=== PATIENT | male | born 1935 | race Caucasian/White ===

== ENCOUNTER 2016-06-08 16:31 | Inpatient (IN) | payer MEDICARE, MEDICAID ==
[2016-06-08] MEDS ORDERED: DEXTROSE 50%-WATER 25 GM/50 ML DISP.SYRIN IV PRN ×2 (17:28)
[2016-06-08] MEDS ORDERED: DEXTROSE 40% GEL 15 GM TUBE PO PRN ×2 (17:28)
[2016-06-08] MEDS ORDERED: GLUCAGON,HUMAN RECOMB 1 MG INJ IM PRN (17:28)
[2016-06-08] MEDS ORDERED: VANCOMYCIN HCL 1,000 MG in DEXTROSE 5%-WATER 250 ML IV ONE (17:33)
[2016-06-08] MEDS ORDERED: ACETAMINOPHEN 325 MG TABLET PO PRN (17:35)
[2016-06-08 20:23] LABS: ABSOLUTE EOSINOPHILS # (AUTO) 0.4 10^3/uL (0.0-0.6); ABSOLUTE MONOCYTES (AUTO) 0.6 10^3/uL (0.1-1.4); ABSOLUTE NEUT (AUTO) 5.3 10^3/uL (1.7-8.2); BASOPHILS % (AUTO) 0.5 % (0-2); EOSINOPHILS % (AUTO) 5.3 % (0-6); HEMOGLOBIN 14.5 g/dL (13.5-17.0); HGB HCT DIFFERENCE 0.5; LYMPHOCYTES % (AUTO) 23.8 % (13-45); MEAN CORPUSCULAR HEMOGLOBIN 31.5 pg (27.0-33.4); MEAN CORPUSCULAR HGB CONC 33.8 g/dL (32.0-36.0); MEAN CORPUSCULAR VOLUME 93 fl (80-97); MONOCYTES % (AUTO) 7.5 % (3-13); RED BLOOD COUNT 4.62 10^6/uL (4.35-5.55); RED CELL DISTRIBUTION WIDTH 13.6 % (11.5-14.0); SEGMENTED NEUTROPHILS % (AUTO) 62.9 % (42-78); WHITE BLOOD COUNT 8.5 10^3/uL (4.0-10.5)
[2016-06-08 20:28] LABS: PROTHROMBIN TIME 13.3 SEC (11.4-15.4)
[2016-06-08 20:29] LABS: PARTIAL THROMBOPLASTIN TIME 30.5 SEC (23.5-35.8)
[2016-06-08] MEDS ORDERED: ENOXAPARIN SODIUM INJ 40 MG/0.4 ML DISP.SYRIN SUBCUT ONE (20:30)
[2016-06-08 20:38] LABS: ALANINE AMINOTRANSFERASE 35 U/L (21-72); ALBUMIN 3.7 g/dL (3.5-5.0); ALKALINE PHOSPHATASE 152 U/L (38-126); ANION GAP 9 (5-19); ASPARTATE AMINO TRANSFERASE 41 U/L (17-59); BILIRUBIN,TOTAL 0.7 mg/dL (0.2-1.3); BLOOD UREA NITROGEN 21 mg/dL (7-20); CALCIUM 9.4 mg/dL (8.4-10.2); CARBON DIOXIDE 30 mmol/L (22-30); CHLORIDE 103 mmol/L (98-107); CREATININE RESULT 1.15 mg/dL (0.52-1.25); GLUCOSE 136 mg/dL (75-110); POTASSIUM 4.8 mmol/L (3.6-5.0); SODIUM 141.6 mmol/L (137-145); TOTAL PROTEIN 6.9 g/dL (6.3-8.2)
--- NOTE | 2016-06-08 23:47 | PDOC H&P ---
History of Present Illness Admission Date/PCP: 06/08/16 17:00 JUWAN YOBANIScar Patient complains of: Worsening leg swelling with leg ulcers History of Present Illness: IVIS ROSAS is a 80 year old male who presented t the office for scheduled follow up for management of his diabetes mellitus, Hypothyroidism and hypertension. Patient and spouse present at the visit reported worsening bilateral leg swelling and infected ulcers and blistering lesions of his legs. There is reported episodes of productive cough and running nose. He denied any fever and chills. Patient and spouse reported worsening malodor and drainage from leg ulcers, particularly on left leg over the last couple of days. His home accucheck has been unusually higher in recent time with readings in the over 200mg/dL range. His blood pressure average was 135/70's mmHg.Patient reported compliance with his home medication. He is currently wrapping legs and ulcers per dressing twice weekly between home health agency nurse visit and spouse dressing. Past Medical History Cardiac Medical History: Reports: Hyperlipidema, Hypertension, Peripheral Vascular Disease - lower extremities venous stasis changes Endocrine Medical History: Reports: Diabetes Mellitus Type 2, Hypothyroidism, Obesity Musculoskeltal Medical History: Reports: Arthritis, Other - lymphedema Social History Information Source: Patient Occupation: Retired Lives with: Spouse/Significant other Smoking Status: Never Smoker Frequency of Alcohol Use: None Hx Recreational Drug Use: No Drugs: None - Advance Directive Resuscitation Status: Full Code Family History Family History: DM - mother, Hypertension - father Parental Family History Reviewed: Yes Children Family History Reviewed: Yes Sibling(s) Family History Reviewed.: Yes Medication/Allergy Allergies/Adverse Reactions: No Known Drug Allergies Allergy (Unknown, Unverified 06/08/16 23:42) Review of Systems Constitutional: ABSENT: chills, fever(s), headache(s), weight gain, weight loss Eyes: PRESENT: visual disturbances Ears: PRESENT: hearing changes Nose, Mouth, and Throat: ABSENT: as per HPI, headache(s), mouth pain, sore throat, vertigo, other Cardiovascular: PRESENT: edema Respiratory: ABSENT: cough, hemoptysis Gastrointestinal: ABSENT: abdominal pain, constipation, diarrhea, hematemesis, hematochezia, nausea, vomiting Genitourinary: ABSENT: dysuria, hematuria Musculoskeletal: PRESENT: deformity - arthritis involvement of many joints, joint swelling - an[place] knee joints bilaterally Integumentary: PRESENT: erythema - bilateral legs below ankle regions, lesions, rash - widespread scaly, blistering lesion on legs, wounds - malodor, drainage from left leg 6cm x 5cm wound and 4cm x 3cm on right leg., other - extensive whitish element covering both feet anf loerw 1/4 of fet anf legs. Neurological: PRESENT: abnormal gait - ambulate with walker assistance, weakness - generalized with 2 person assist Psychiatric: ABSENT: anxiety, depression, homidical ideation, suicidal ideation Hematologic/Lymphatic: ABSENT: easy bleeding, easy bruising, lymphadenopathy Allergic/Immunologic: ABSENT: as per HPI, seasonal rhinorrhea, other Physical Exam Vital Signs: Temp Pulse Resp BP Pulse Ox 98.1 F 71 20 142/58 H 100 06/08/16 22:28 06/08/16 22:30 06/08/16 22:28 06/08/16 22:30 06/08/16 22:28 Intake & Output 06/07/16 06/08/16 06/09/16 06:59 06:59 06:59 Weight 171.6 kg General appearance: PRESENT: no acute distress, cooperative, morbidly obese Head exam: PRESENT: atraumatic, normocephalic Eye exam: PRESENT: conjunctiva pink, EOMI, PERRLA Ear exam: PRESENT: normal external ear exam Mouth exam: PRESENT: moist, tongue midline Throat exam: ABSENT: post pharyngeal erythema, tonsillar erythema, tonsillar exudate, tonsillogmegaly, other Neck exam: PRESENT: full ROM. ABSENT: carotid bruit, JVD, lymphadenopathy, thyromegaly Respiratory exam: ABSENT: accessory muscle use, chest wall tenderness, clear to auscultation remedios, crackles, decreased breath sounds, prolonged expiratory phas, rales, retraction, rhonchi, stridor, symmetrical, tachypnea, unlabored, wheezes , other Cardiovascular exam: PRESENT: RRR. ABSENT: diastolic murmur, rubs, systolic murmur GI/Abdominal exam: PRESENT: normal bowel sounds, soft. ABSENT: distended, guarding, mass, organolmegaly, rebound, tenderness Extremities exam: PRESENT: full ROM, joint swelling, pedal edema, tenderness Musculoskeletal exam: PRESENT: ambulatory - with walker and2 person assist, deformity - due to joint involvement with arthritis, tenderness Neurological exam: PRESENT: alert, awake, oriented to person, oriented to place , oriented to time, oriented to situation, abnormal gait - with walker and 2person assistance, CN II-XII grossly intact. ABSENT: motor sensory deficit Psychiatric exam: PRESENT: appropriate affect, normal mood. ABSENT: homicidal ideation, suicidal ideation Skin exam: PRESENT: erythema, rash, warm, other - as noted uner ROS above Results Laboratory Results: 06/08/16 20:00 06/08/16 20:00 06/08/16 06/08/16 20:00 20:00 WBC 8.5 RBC 4.62 Hgb 14.5 Hct 43.0 MCV 93 MCH 31.5 MCHC 33.8 RDW 13.6 Plt Count 165 Seg Neutrophils % 62.9 Lymphocytes % 23.8 Monocytes % 7.5 Eosinophils % 5.3 Basophils % 0.5 Absolute Neutrophils 5.3 Absolute Lymphocytes 2.0 Absolute Monocytes 0.6 Absolute Eosinophils 0.4 Absolute Basophils 0.0 Sodium 141.6 Potassium 4.8 Chloride 103 Carbon Dioxide 30 Anion Gap 9 BUN 21 H Creatinine 1.15 Est GFR ( Amer) > 60 Est GFR (Non-Af Amer) > 60 Glucose 136 H Calcium 9.4 Total Bilirubin 0.7 AST 41 ALT 35 Alkaline Phosphatase 152 H Total Protein 6.9 Albumin 3.7 Assessment & Plan - Diagnosis (1) Infected stasis ulcer of left lower extremity Is this a current diagnosis for this admission?: YesPlan: See admitting physician orders. (2) Infected stasis ulcer of right lower extremity Is this a current diagnosis for this admission?: YesPlan: See admitting physician orders. (3) Diabetes mellitus type 2 in obese Is this a current diagnosis for this admission?: YesPlan: See admitting physician orders. (4) Hypothyroidism (acquired) Is this a current diagnosis for this admission?: YesPlan: See admitting physician orders. (5) Morbid (severe) obesity due to excess calories Is this a current diagnosis for this admission?: YesPlan: See admitting physician orders. (6) Essential hypertension Is this a current diagnosis for this admission?: YesPlan: See admitting physician orders. (7) Cellulitis and abscess of lower extremity Is this a current diagnosis for this admission?: YesPlan: See admitting physician orders. (8) HLD (hyperlipidemia) Qualifiers: Hyperlipidemia type: pure hypercholesterolemia Qualified Code(s): E78.00 - Pure hypercholesterolemia, unspecified; E78.0 - Pure hypercholesterolemia Is this a current diagnosis for this admission?: YesPlan: See admitting physician orders. - Time Time Spent: Greater than 70 Minutes Critical Time spent with patient: 15-24 minutes Medications reviewed and adjusted accordingly: Yes Anticipated discharge: SNF Within: Other - Inpatient Certification Based on my medical assessment, after consideration of the patient's comorbidities, presenting symptoms, or acuity I expect that the services needed warrant INPATIENT care.: Yes I certify that my determination is in accordance with my understanding of Medicare's requirements for reasonable and necessary INPATIENT services [42 CFR 412.3e].: Yes Medical Necessity: Need Close Monitoring Due to Risk of Patient Decompensation, Need For IV Fluids, Need For Continuous Telemetry Monitoring, Need for IV Antibiotics, Need for Surgery, Risk of Complication if Not Cared For in Hospital - Plan Summary Plan Summary: See admitting physician orders.
[2016-06-09] MEDS: ENOXAPARIN SODIUM INJ 40 MG/0.4 ML DISP.SYRIN SUBCUT SCH (06:00)
[2016-06-09] MEDS ORDERED: VANCOMYCIN HCL 0 MG in DEXTROSE 5%-WATER 250 ML IV NR (06:00)
[2016-06-09] MEDS: LANSOPRAZOLE 30 MG TAB.RAP.DR PO SCH (06:00)
[2016-06-09] MEDS: MUPIROCIN CALCIUM 2% CREAM 15 GM TP SCH ×3 (06:00→18:46)
[2016-06-09] MEDS: PIPERACILLIN SODIUM/TAZOBACTAM 3.375 GM in NORMAL SALINE 100 ML IV SCH ×3 (06:00→18:36)
[2016-06-09] MEDS: NORMAL SALINE 1000 ML 1,000 ML IV PRN ×4 (06:00→22:39)
[2016-06-09 06:37] LABS: ANION GAP 7 (5-19); BLOOD UREA NITROGEN 22 mg/dL (7-20); CALCIUM 8.9 mg/dL (8.4-10.2); CARBON DIOXIDE 28 mmol/L (22-30); CHLORIDE 106 mmol/L (98-107); CHOLESTEROL 151.07 mg/dL (0-200); CREATININE RESULT 0.86 mg/dL (0.52-1.25); Direct HDL 33 mg/dL (>40); GLUCOSE 95 mg/dL (75-110); POTASSIUM 4.6 mmol/L (3.6-5.0); SODIUM 140.8 mmol/L (137-145); TRIGLYCERIDES 163 mg/dL (<150)
[2016-06-09 06:48] LABS: DIRECT LDL 70 mg/dL (<100)
[2016-06-09 06:52] LABS: VLDL CHOLESTEROL 32.6 mg/dL (10-31)
[2016-06-09 08:04] LABS: ABSOLUTE EOSINOPHILS # (AUTO) 0.6 10^3/uL (0.0-0.6); ABSOLUTE LYMPHOCYTES (AUTO) 1.8 10^3/uL (0.5-4.7); ABSOLUTE MONOCYTES (AUTO) 0.7 10^3/uL (0.1-1.4); ABSOLUTE NEUT (AUTO) 4.7 10^3/uL (1.7-8.2); BASOPHILS % (AUTO) 0.4 % (0-2); EOSINOPHILS % (AUTO) 7.4 % (0-6); HEMATOCRIT 39.8 % (37.9-51.0); HEMOGLOBIN 13.3 g/dL (13.5-17.0); HGB HCT DIFFERENCE 0.1; MEAN CORPUSCULAR HGB CONC 33.3 g/dL (32.0-36.0); MEAN CORPUSCULAR VOLUME 93 fl (80-97); MONOCYTES % (AUTO) 8.8 % (3-13); RED BLOOD COUNT 4.28 10^6/uL (4.35-5.55); RED CELL DISTRIBUTION WIDTH 13.7 % (11.5-14.0); SEGMENTED NEUTROPHILS % (AUTO) 60.4 % (42-78); WHITE BLOOD COUNT 7.7 10^3/uL (4.0-10.5)
[2016-06-09] MEDS ORDERED: VANCOMYCIN HCL 2,000 MG in DEXTROSE 5%-WATER 500 ML IV ONE (08:30)
--- NOTE | 2016-06-09 13:38 | CONSULTATION REPORT E ---
Consultation Report NAME: IVIS ROSAS : 1935 AGE: 80Y DATE: 06/09/2016 328 A TO: ALEAH AVILA M.D. FROM: JUWAN REN M.D. Requesting Physician The patient is a 80-year-old gentleman, consultation from hospitalist service, for evaluation of bilateral leg ulcers with chronically swollen legs. Admit for possible cellulitis. The gentleman basically gives a history of this lower extremity edema and swelling for almost decades long and progressively getting worse and worse, and cannot recall whether he had any ruled out deep venous thrombosis in the past. So, he has swollen extremities for the longest while, in and out they get blistered and drain. Essentially was admitted for ulcerations on the legs and drainage, and not a cough. PAST MEDICAL HISTORY: His personal problems are multiple including morbid obesity, hyperlipidemia, hypertension, peripheral vascular disease, chronic venous stasis disease, diabetes, lymphedema history. PAST SURGICAL HISTORY: No major surgeries in the past. SOCIAL HISTORY: He lives with family. Not a smoker, no history of alcohol abuse, no drug abuse. FAMILY HISTORY: Hypertension in the mother. ALLERGIES: No known drug allergies. REVIEW OF SYSTEMS: CARDIOVASCULAR: No history of chest pain, no history of coronary artery disease or congestive cardiac failure. RESPIRATORY: Morbid obesity-related shortness of breath on and off but no clear history of copd. GASTROINTESTINAL: No history for colorectal malignancy or polyps or bleeding problem. The rest of the systems as per examination. PHYSICAL EXAMINATION: GENERAL: He is a morbidly obese patient, at this point not in any distress, afebrile. HEAD AND NECK: No palpable masses and no thyromegaly. RESPIRATORY: Both lungs good air entry, no rales, no creps. ABDOMEN: Soft, nontender, no masses palpable, no hernia. EXTREMITIES: Bilateral both lower extremities extremely swollen, edematous with chronic venous stasis changes with chronically thickened skin with some minor blisters, which are opened with drainage. Most of these consistent with chronic severe lymphedema bilateral both extremities. No palpable pulses because of the extent of the skin swelling but both extremities felt to be warm. No sol otherwise on palpation. IMPRESSION: Overall, patient is a morbidly obese, physically not active with chronic bilateral lymphedema with chronic serous drainage. PLAN: Basically, it has to be multifactorial including weight reduction, keeping the legs elevated, keep the lymphedema as much as possible drained out. leg elevation. We will order bilateral venous Doppler study to rule out any chronic DVTs. Other than that, no surgical intervention is necessary, no rule for any surgical intervention. patient and I will follow as needed. Thank you for the consultation. DICTATING PHYSICIAN: ALEAH AVILA M.D. [id number] PHY#: [id number] ID: [id number] JOB#: [id number] ACCT: [id number] cc:ALEAH AVILA M.D. > MTDD
[2016-06-09] MEDS ORDERED: SODIUM HYPOCHLORITE 0.25% SOLN 473 ML BOTTLE TP ONE (15:00)
--- NOTE | 2016-06-09 15:19 | PDOC PROGRESS REPORT ---
Subjective Progress Note for:: 06/09/16 Subjective:: Patient denied fever or chills. Remain on IV antibiotic therapy. Surgical input appreciated. No surgical intervention offered at this time. Follow up on lower extremities venous doppler evaluation. Wound and Blood cultures are no growth to date. Malodor from leg wounds persist with purulent drainage. Physical Exam Vital Signs: Temp Pulse Resp BP Pulse Ox 98.3 F 67 22 H 143/46 H 96 06/09/16 12:02 06/09/16 12:02 06/09/16 12:02 06/09/16 12:02 06/09/16 12:02 Intake & Output 06/08/16 06/09/16 06/10/16 06:59 06:59 06:59 Intake Total 200 600 Output Total 450 500 Balance -250 100 Weight 171 kg Physical Exam: General appearance: PRESENT: no acute distress, cooperative, morbidly obese Head exam: PRESENT: atraumatic, normocephalic Eye exam: PRESENT: conjunctiva pink, EOMI, PERRLA Ear exam: PRESENT: normal external ear exam Mouth exam: PRESENT: moist, tongue midline Throat exam: ABSENT: post pharyngeal erythema, tonsillar erythema, tonsillar exudate, tonsillogmegaly, other Neck exam: PRESENT: full ROM. ABSENT: carotid bruit, JVD, lymphadenopathy, thyromegaly Respiratory exam: ABSENT: accessory muscle use, chest wall tenderness, clear to auscultation remedios, crackles, decreased breath sounds, prolonged expiratory phase , rales, retraction, rhonchi, stridor, symmetrical, tachypnea, unlabored, wheezes, other Cardiovascular exam: PRESENT: RRR. ABSENT: diastolic murmur, rubs, systolic murmur GI/Abdominal exam: PRESENT: normal bowel sounds, soft. ABSENT: distended, guarding, mass, organomegaly, rebound, tenderness Extremities exam: PRESENT: full ROM, joint swelling, pedal edema, tenderness Musculoskeletal exam: PRESENT: bedbound with leg elevation, deformity - due to joint involvement with arthritis Neurological exam: PRESENT: alert, awake, oriented to person, oriented to place , oriented to time, oriented to situation, CN II-XII grossly intact. ABSENT: motor sensory deficit Psychiatric exam: PRESENT: appropriate affect, normal mood. ABSENT: homicidal ideation, suicidal ideation Skin exam: PRESENT: erythema, rash, warm, other - extensive exophytic collection of possible fungal skin infection on legs and feet to knee level. Results Laboratory Results: 06/09/16 07:21 06/09/16 05:49 06/08/16 06/08/16 06/09/16 20:00 20:00 05:49 WBC 8.5 Cancelled RBC 4.62 Cancelled Hgb 14.5 Cancelled Hct 43.0 Cancelled MCV 93 Cancelled MCH 31.5 Cancelled MCHC 33.8 Cancelled RDW 13.6 Cancelled Plt Count 165 Cancelled Seg Neutrophils % 62.9 Cancelled Lymphocytes % 23.8 Cancelled Monocytes % 7.5 Cancelled Eosinophils % 5.3 Cancelled Basophils % 0.5 Cancelled Absolute Neutrophils 5.3 Cancelled Absolute Lymphocytes 2.0 Cancelled Absolute Monocytes 0.6 Cancelled Absolute Eosinophils 0.4 Cancelled Absolute Basophils 0.0 Cancelled Sodium 141.6 Potassium 4.8 Chloride 103 Carbon Dioxide 30 Anion Gap 9 BUN 21 H Creatinine 1.15 Est GFR ( Amer) > 60 Est GFR (Non-Af Amer) > 60 Glucose 136 H Calcium 9.4 Total Bilirubin 0.7 AST 41 ALT 35 Alkaline Phosphatase 152 H Total Protein 6.9 Albumin 3.7 Triglycerides Cholesterol LDL Cholesterol Direct VLDL Cholesterol HDL Cholesterol 06/09/16 06/09/16 05:49 07:21 WBC 7.7 RBC 4.28 L Hgb 13.3 L Hct 39.8 MCV 93 MCH 31.0 MCHC 33.3 RDW 13.7 Plt Count 126 L Seg Neutrophils % 60.4 Lymphocytes % 23.0 Monocytes % 8.8 Eosinophils % 7.4 H Basophils % 0.4 Absolute Neutrophils 4.7 Absolute Lymphocytes 1.8 Absolute Monocytes 0.7 Absolute Eosinophils 0.6 Absolute Basophils 0.0 Sodium 140.8 Potassium 4.6 Chloride 106 Carbon Dioxide 28 Anion Gap 7 BUN 22 H Creatinine 0.86 Est GFR ( Amer) > 60 Est GFR (Non-Af Amer) > 60 Glucose 95 Calcium 8.9 Total Bilirubin AST ALT Alkaline Phosphatase Total Protein Albumin Triglycerides 163 H Cholesterol 151.07 LDL Cholesterol Direct 70 VLDL Cholesterol 32.6 H HDL Cholesterol 33 L Assessment & Plan - Diagnosis (1) Infected stasis ulcer of left lower extremity Is this a current diagnosis for this admission?: YesPlan: See attending physician orders. Maintain on IV Zosyn and vancomycin coverage pending culture findings. (2) Infected stasis ulcer of right lower extremity Is this a current diagnosis for this admission?: YesPlan: See attending physician orders. Maintain on IV Zosyn and vancomycin coverage pending culture findings. (3) Diabetes mellitus type 2 in obese Is this a current diagnosis for this admission?: YesPlan: See attending physician orders. His HgbA1c is in acceptable range. His lower extremities possible fungal skin infection may be related to his diabetes mellitus. (4) Hypothyroidism (acquired) Is this a current diagnosis for this admission?: YesPlan: See attending physician orders. (5) Morbid (severe) obesity due to excess calories Is this a current diagnosis for this admission?: YesPlan: See attending physician orders. (6) Essential hypertension Is this a current diagnosis for this admission?: YesPlan: See attending physician orders. (7) Cellulitis and abscess of lower extremity Is this a current diagnosis for this admission?: YesPlan: See attending physician orders. Maintain on IV Zosyn and Vancomycin coverage pending culture findings. (8) HLD (hyperlipidemia) Qualifiers: Hyperlipidemia type: pure hypercholesterolemia Qualified Code(s): E78.00 - Pure hypercholesterolemia, unspecified; E78.0 - Pure hypercholesterolemia Is this a current diagnosis for this admission?: YesPlan: See attending physician orders. - Time Time Spent with patient: 25-34 minutes Medications reviewed and adjusted accordingly: Yes Anticipated discharge: Home with Homehealth Within: Other - Inpatient Certification Based on my medical assessment, after consideration of the patient's comorbidities, presenting symptoms, or acuity I expect that the services needed warrant INPATIENT care.: Yes I certify that my determination is in accordance with my understanding of Medicare's requirements for reasonable and necessary INPATIENT services [42 CFR 412.3e].: Yes Medical Necessity: Need Close Monitoring Due to Risk of Patient Decompensation, Need For IV Fluids, Need For Continuous Telemetry Monitoring, Need for IV Antibiotics, Risk of Complication if Not Cared For in Hospital Post Hospital Care: D/C Adjunct Physical Education Instructor Documentation - Plan Summary Plan Summary: See attending physician orders. I had extensive discussion with patient and spouse at bedside regarding his care plan and surgical team recommendation. We will follow up on his venous doppler evaluation. We will continue Darken Solution soak dressing to his legs lesions for possible removal.
[2016-06-09] MEDS: VANCOMYCIN HCL 2,000 MG in DEXTROSE 5%-WATER 500 ML IV SCH (22:39)
[2016-06-10] MEDS: PIPERACILLIN SODIUM/TAZOBACTAM 3.375 GM in NORMAL SALINE 100 ML IV SCH ×4 (08:08→23:16)
[2016-06-10] MEDS: LANSOPRAZOLE 30 MG TAB.RAP.DR PO SCH (08:12)
[2016-06-10] MEDS: ENOXAPARIN SODIUM INJ 40 MG/0.4 ML DISP.SYRIN SUBCUT SCH (08:13)
--- NOTE | 2016-06-10 09:03 | PDOC PROGRESS REPORT ---
Subjective Progress Note for:: 06/10/16 Subjective:: Patient is currently doing fair denied any chest pain denied any shortness of the breath and no fever. Patient is currently on IV antibiotic with the diabetic foot wound Physical Exam Vital Signs: Temp Pulse Resp BP Pulse Ox 98.5 F 62 20 142/50 H 94 06/10/16 07:24 06/10/16 07:24 06/10/16 07:24 06/10/16 07:24 06/10/16 07:24 Intake & Output 06/09/16 06/10/16 06/11/16 06:59 06:59 06:59 Intake Total 200 2645 Output Total 450 500 Balance -250 2145 Weight 171 kg 176.7 kg General appearance: PRESENT: no acute distress Head exam: PRESENT: normocephalic Respiratory exam: PRESENT: clear to auscultation remedios Cardiovascular exam: PRESENT: +S1, +S2 GI/Abdominal exam: PRESENT: normal bowel sounds, soft. ABSENT: tenderness Extremities exam: PRESENT: pedal edema, other Additional comments: Bilateral lower extremities chronic changes and edema and a chronic wound Neurological exam: PRESENT: alert, awake, oriented to person, oriented to place Results Laboratory Results: 06/09/16 07:21 06/09/16 05:49 Assessment & Plan - Diagnosis (1) Cellulitis and abscess of lower extremity Is this a current diagnosis for this admission?: YesPlan: Continues to IV antibiotic (2) Diabetes mellitus type 2 in obese Is this a current diagnosis for this admission?: YesPlan: Continues the current medications (3) Essential hypertension Is this a current diagnosis for this admission?: YesPlan: Stable (4) Infected stasis ulcer of left lower extremity Is this a current diagnosis for this admission?: Yes (5) Infected stasis ulcer of right lower extremity Is this a current diagnosis for this admission?: YesPlan: Follow with the general surgery and a continuous wound care management and IV antibiotic (6) Morbid (severe) obesity due to excess calories Is this a current diagnosis for this admission?: Yes - Time Time Spent with patient: 15-24 minutes Medications reviewed and adjusted accordingly: Yes Anticipated discharge: Other - Inpatient Certification Medical Necessity: Need Close Monitoring Due to Risk of Patient Decompensation, Need for IV Antibiotics Post Hospital Care: D/C Instrument Lens Generator Documentation - Plan Summary Plan Summary: Continues the current medication and IV antibiotic and discuss with the family in the room and no other concern
[2016-06-10] MEDS: VANCOMYCIN HCL 2,000 MG in DEXTROSE 5%-WATER 500 ML IV SCH (09:56)
[2016-06-10] MEDS ORDERED: SODIUM HYPOCHLORITE 0.25% SOLN 473 ML BOTTLE TP SCH (10:00)
--- NOTE | 2016-06-10 13:09 | PDOC PROGRESS REPORT ---
Subjective Progress Note for:: 06/10/16 Subjective:: minimAL PAIN Physical Exam Vital Signs: Temp Pulse Resp BP Pulse Ox 98.5 F 62 20 142/50 H 94 06/10/16 07:24 06/10/16 07:24 06/10/16 07:24 06/10/16 07:24 06/10/16 07:24 Intake & Output 06/09/16 06/10/16 06/11/16 06:59 06:59 06:59 Intake Total 200 2645 Output Total 450 500 Balance -250 2145 Weight 171 kg 176.7 kg Musculoskeletal exam: PRESENT: ambulatory, deformity - bilateral severe lymphademea of the legs, dislocation, full ROM, normal inspection, tenderness, other Results Laboratory Results: 06/09/16 07:21 06/09/16 05:49 Assessment & Plan - Plan Summary Plan Summary: Lymphedema No surgical intervention needed. Keep legs elivated Dry dressings
[2016-06-10] MEDS: MUPIROCIN CALCIUM 2% CREAM 15 GM TP SCH ×2 (14:58→17:26)
[2016-06-10] MEDS: SODIUM HYPOCHLORITE 0.25% SOLN 473 ML BOTTLE TP SCH (16:11)
[2016-06-10 21:58] LABS: CREATININE RESULT 1.06 mg/dL (0.52-1.25)
[2016-06-10] MEDS: NORMAL SALINE 1000 ML 1,000 ML IV PRN (23:16)
[2016-06-11] MEDS: VANCOMYCIN HCL 2,000 MG in DEXTROSE 5%-WATER 500 ML IV SCH ×3 (00:49→22:04)
[2016-06-11] MEDS: SODIUM HYPOCHLORITE 0.25% SOLN 473 ML BOTTLE TP SCH ×2 (01:50→11:35)
[2016-06-11] MEDS: PIPERACILLIN SODIUM/TAZOBACTAM 3.375 GM in NORMAL SALINE 100 ML IV SCH ×3 (06:40→17:24)
[2016-06-11] MEDS: LANSOPRAZOLE 30 MG TAB.RAP.DR PO SCH (06:40)
[2016-06-11] MEDS: ENOXAPARIN SODIUM INJ 40 MG/0.4 ML DISP.SYRIN SUBCUT SCH (09:21)
[2016-06-11] MEDS: MUPIROCIN CALCIUM 2% CREAM 15 GM TP SCH ×2 (09:22→17:27)
--- NOTE | 2016-06-11 10:56 | PDOC PROGRESS REPORT ---
Subjective Progress Note for:: 06/11/16 Subjective:: Patient is complaining of some loose stool 4 yesterday. No abdominal pain no nausea no vomiting. No fever. Patient's currently on IV antibiotic for the leg wound. Physical Exam Vital Signs: Temp Pulse Resp BP Pulse Ox 98.7 F 62 18 144/50 H 97 06/11/16 07:29 06/11/16 07:29 06/11/16 07:29 06/11/16 07:29 06/11/16 07:29 Intake & Output 06/10/16 06/11/16 06/12/16 06:59 06:59 06:59 Intake Total 2645 2345 Output Total 500 2300 Balance 2145 45 Weight 176.7 kg 176 kg General appearance: PRESENT: no acute distress Head exam: PRESENT: normocephalic Eye exam: PRESENT: PERRLA Mouth exam: PRESENT: neck supple Neck exam: ABSENT: carotid bruit, full ROM, JVD, lymphadenopathy, meningismus, tenderness, thyromegaly, tracheal deviation, tracheostomy, other Respiratory exam: ABSENT: accessory muscle use, chest wall tenderness, clear to auscultation remedios, crackles, decreased breath sounds, prolonged expiratory phas, rales, retraction, rhonchi, stridor, symmetrical, tachypnea, unlabored, wheezes , other Cardiovascular exam: ABSENT: bradycardia, clicks, diastolic murmur, gallop, irregular rhythm, RRR, rubs, +S1, +S2, systolic murmur, tachycardia, other GI/Abdominal exam: PRESENT: normal bowel sounds, soft. ABSENT: tenderness Extremities exam: PRESENT: pedal edema Additional comments: Clonus chronic wound on the both legs and a chronic edema Neurological exam: PRESENT: alert, awake, oriented to person Skin exam: PRESENT: dry Results Laboratory Results: 06/09/16 07:21 06/10/16 21:24 06/10/16 21:24 Creatinine 1.06 Est GFR ( Amer) > 60 Est GFR (Non-Af Amer) > 60 Assessment & Plan - Diagnosis (1) Cellulitis and abscess of lower extremity Is this a current diagnosis for this admission?: YesPlan: Continues to IV antibiotic (2) Diabetes mellitus type 2 in obese Is this a current diagnosis for this admission?: YesPlan: Continues the current medications (3) Essential hypertension Is this a current diagnosis for this admission?: Yes (4) Infected stasis ulcer of left lower extremity Is this a current diagnosis for this admission?: YesPlan: Continues to follow with the general surgery and continues IV antibiotic (5) Infected stasis ulcer of right lower extremity Is this a current diagnosis for this admission?: Yes (6) Morbid (severe) obesity due to excess calories Is this a current diagnosis for this admission?: Yes (7) Diarrhea Qualifiers: Diarrhea type: unspecified type Qualified Code(s): R19.7 - Diarrhea , unspecified Is this a current diagnosis for this admission?: YesPlan: Most likely antibiotic related with check the stool for C. difficile and start the patient on the probiotics - Time Time Spent with patient: 15-24 minutes Medications reviewed and adjusted accordingly: Yes Anticipated discharge: SNF Within: Other - Inpatient Certification Medical Necessity: Significant Comorbidiites Make Outpatient Treatment Too Risky , Need Close Monitoring Due to Risk of Patient Decompensation, Need for IV Antibiotics Post Hospital Care: D/C Director Network Development Documentation - Plan Summary Plan Summary: Discussed with the patient's family in the room start the patient on the probiotics and a check the stool for C. difficile and continues IV antibiotic
[2016-06-11] MEDS ORDERED: LACTOBACILLUS ACIDOPHILUS 250 MG TAB PO ONE (11:30)
--- NOTE | 2016-06-11 13:54 | PDOC PROGRESS REPORT ---
Subjective Progress Note for:: 06/11/16 Physical Exam Vital Signs: Temp Pulse Resp BP Pulse Ox 98.7 F 62 18 144/50 H 97 06/11/16 07:29 06/11/16 07:29 06/11/16 07:29 06/11/16 07:29 06/11/16 07:29 Intake & Output 06/10/16 06/11/16 06/12/16 06:59 06:59 06:59 Intake Total 2645 2345 236 Output Total 500 2300 300 Balance 2145 45 -64 Weight 176.7 kg 176 kg Extremities exam: PRESENT: other - Lymphadema , Results Laboratory Results: 06/09/16 07:21 06/10/16 21:24 06/10/16 21:24 Creatinine 1.06 Est GFR ( Amer) > 60 Est GFR (Non-Af Amer) > 60 06/09/16 05:00 Leg - Not Specified Gram Stain - Final Assessment & Plan - Plan Summary Plan Summary: Lymphadema - bilateral lower extremity - no surgical intervention needed.
[2016-06-11] MEDS: LACTOBACILLUS ACIDOPHILUS 250 MG TAB PO SCH (17:25)
[2016-06-11] MEDS: INSULIN LISPRO 100 UNIT/ML 3 ML VIAL SUBCUT PRN (17:25)
[2016-06-12] MEDS: PIPERACILLIN SODIUM/TAZOBACTAM 3.375 GM in NORMAL SALINE 100 ML IV SCH ×4 (00:46→17:00)
[2016-06-12] MEDS: SODIUM HYPOCHLORITE 0.25% SOLN 473 ML BOTTLE TP SCH ×2 (00:46→11:59)
[2016-06-12] MEDS: NORMAL SALINE 1000 ML 1,000 ML IV PRN (05:53)
[2016-06-12] MEDS: LANSOPRAZOLE 30 MG TAB.RAP.DR PO SCH (05:57)
[2016-06-12 06:10] LABS: ABSOLUTE EOSINOPHILS # (AUTO) 0.6 10^3/uL (0.0-0.6); ABSOLUTE LYMPHOCYTES (AUTO) 1.7 10^3/uL (0.5-4.7); ABSOLUTE MONOCYTES (AUTO) 0.7 10^3/uL (0.1-1.4); ABSOLUTE NEUT (AUTO) 4.9 10^3/uL (1.7-8.2); BASOPHILS % (AUTO) 0.6 % (0-2); HEMATOCRIT 37.4 % (37.9-51.0); HEMOGLOBIN 12.8 g/dL (13.5-17.0); LYMPHOCYTES % (AUTO) 21.2 % (13-45); MEAN CORPUSCULAR HGB CONC 34.3 g/dL (32.0-36.0); MEAN CORPUSCULAR VOLUME 93 fl (80-97); MONOCYTES % (AUTO) 8.7 % (3-13); RED BLOOD COUNT 4.01 10^6/uL (4.35-5.55); RED CELL DISTRIBUTION WIDTH 13.3 % (11.5-14.0); SEGMENTED NEUTROPHILS % (AUTO) 61.5 % (42-78); WHITE BLOOD COUNT 7.9 10^3/uL (4.0-10.5)
[2016-06-12 06:25] LABS: ANION GAP 9 (5-19); BLOOD UREA NITROGEN 13 mg/dL (7-20); CALCIUM 8.6 mg/dL (8.4-10.2); CARBON DIOXIDE 23 mmol/L (22-30); CHLORIDE 108 mmol/L (98-107); CREATININE RESULT 0.92 mg/dL (0.52-1.25); GLUCOSE 102 mg/dL (75-110)
[2016-06-12] MEDS: ENOXAPARIN SODIUM INJ 40 MG/0.4 ML DISP.SYRIN SUBCUT SCH (07:41)
[2016-06-12] MEDS: MUPIROCIN CALCIUM 2% CREAM 15 GM TP SCH ×2 (09:27→17:03)
[2016-06-12] MEDS: VANCOMYCIN HCL 2,000 MG in DEXTROSE 5%-WATER 500 ML IV SCH (09:29)
[2016-06-12] MEDS: LACTOBACILLUS ACIDOPHILUS 250 MG TAB PO SCH ×2 (09:31→17:00)
--- NOTE | 2016-06-12 13:01 | PDOC PROGRESS REPORT ---
Subjective Progress Note for:: 06/12/16 Subjective:: Patient denied fever or chills. Remain on IV antibiotic therapy. Surgical input appreciated. No surgical intervention offered at this time. Wound and Blood cultures are no growth to date. Improve malodor and purulent drainage from leg ulcers. Physical Exam Vital Signs: Temp Pulse Resp BP Pulse Ox 97.7 F 64 20 148/58 H 97 06/12/16 07:51 06/12/16 10:00 06/12/16 07:51 06/12/16 07:51 06/12/16 07:51 Intake & Output 06/11/16 06/12/16 06/13/16 06:59 06:59 06:59 Intake Total 2345 1522 460 Output Total 2300 650 375 Balance 45 872 85 Weight 176 kg Physical Exam: General appearance: PRESENT: no acute distress, cooperative, morbidly obese Head exam: PRESENT: atraumatic, normocephalic Eye exam: PRESENT: conjunctiva pink, EOMI, PERRLA Ear exam: PRESENT: normal external ear exam Mouth exam: PRESENT: moist, tongue midline Throat exam: ABSENT: post pharyngeal erythema, tonsillar erythema, tonsillar exudate, tonsillogmegaly, other Neck exam: PRESENT: full ROM. ABSENT: carotid bruit, JVD, lymphadenopathy, thyromegaly Respiratory exam: ABSENT: accessory muscle use, chest wall tenderness, clear to auscultation remedios, crackles, decreased breath sounds, prolonged expiratory phase , rales, retraction, rhonchi, stridor, symmetrical, tachypnea, unlabored, wheezes, other Cardiovascular exam: PRESENT: RRR. ABSENT: diastolic murmur, rubs, systolic murmur GI/Abdominal exam: PRESENT: normal bowel sounds, soft. ABSENT: distended, guarding, mass, organomegaly, rebound, tenderness Extremities exam: PRESENT: full ROM, joint swelling, pedal edema, tenderness Musculoskeletal exam: PRESENT: bedbound with leg elevation, deformity - due to joint involvement with arthritis Neurological exam: PRESENT: alert, awake, oriented to person, oriented to place , oriented to time, oriented to situation, CN II-XII grossly intact. ABSENT: motor sensory deficit Psychiatric exam: PRESENT: appropriate affect, normal mood. ABSENT: homicidal ideation, suicidal ideation Skin exam: PRESENT: improving erythema, rash, warm, other - improving extensive exophytic collection of possible fungal skin infection on legs and feet to knee level. Results Laboratory Results: 06/12/16 05:41 06/12/16 05:41 06/12/16 06/12/16 05:41 05:41 WBC 7.9 RBC 4.01 L Hgb 12.8 L Hct 37.4 L MCV 93 MCH 32.0 MCHC 34.3 RDW 13.3 Plt Count 123 L Seg Neutrophils % 61.5 Lymphocytes % 21.2 Monocytes % 8.7 Eosinophils % 8.0 H Basophils % 0.6 Absolute Neutrophils 4.9 Absolute Lymphocytes 1.7 Absolute Monocytes 0.7 Absolute Eosinophils 0.6 Absolute Basophils 0.0 Sodium 140.0 Potassium 4.0 Chloride 108 H Carbon Dioxide 23 Anion Gap 9 BUN 13 Creatinine 0.92 Est GFR ( Amer) > 60 Est GFR (Non-Af Amer) > 60 Glucose 102 Calcium 8.6 06/09/16 05:00 Leg - Not Specified Gram Stain - Final Assessment & Plan - Diagnosis (1) Infected stasis ulcer of left lower extremity Is this a current diagnosis for this admission?: YesPlan: See attending physician orders. Wound culture grew Protus Mirabilis with 2 other gram negative rods organism. Maintain on IV Zosyn coverage. I will discontinue IV Vancomycin coverage. Follow up on wound culture findings for possible oral antibiotic therapy. I had extensive discussion with patient and spouse at bedside during my evaluation today. he will benefit from persistent leg elevation and in need of electric hospital bed upon discharge to achieve this effort. This will help in the management of his chronic lymphedema and venous stasis ulcers. (2) Infected stasis ulcer of right lower extremity Is this a current diagnosis for this admission?: Yes (3) Diabetes mellitus type 2 in obese Is this a current diagnosis for this admission?: YesPlan: See attending physician orders. I will resume his preadmission Lantus insulin therapy for diabetes mellitus management. (4) Hypothyroidism (acquired) Is this a current diagnosis for this admission?: YesPlan: See attending physician orders. (5) Morbid (severe) obesity due to excess calories Is this a current diagnosis for this admission?: YesPlan: See attending physician orders. (6) Essential hypertension Is this a current diagnosis for this admission?: YesPlan: See attending physician orders. (7) Cellulitis and abscess of lower extremity Is this a current diagnosis for this admission?: YesPlan: See attending physician orders. Maintain on IV Zosyn coverage pending complete culture findings. (8) HLD (hyperlipidemia) Qualifiers: Hyperlipidemia type: pure hypercholesterolemia Qualified Code(s): E78.00 - Pure hypercholesterolemia, unspecified; E78.0 - Pure hypercholesterolemia Is this a current diagnosis for this admission?: YesPlan: See attending physician orders. - Time Time Spent with patient: 25-34 minutes Medications reviewed and adjusted accordingly: Yes Anticipated discharge: Home with Homehealth - Inpatient Certification Medical Necessity: Need For IV Fluids, Need For Continuous Telemetry Monitoring , Need for IV Antibiotics, Risk of Complication if Not Cared For in Hospital Post Hospital Care: D/C Grease Renderer Documentation - Plan Summary Plan Summary: see attending physician orders.
--- NOTE | 2016-06-12 14:56 | XCELERA REPORT ---
[address] [address] Lower Extremity Venous Evaluation Name: IVIS BROWN JR Age: 80 yrs Gender: Male : 1935 Patient Status: Inpatient Patient Location: [id number]\S\328\[id number]\A Study Date: 06/09/2016 04:29 PM Procedure: Color flow and duplex imaging bilaterally of the veins of the lower extremities as well as the Common Femoral veins. Reason For Study: ? DVT Ordering Physician: JUWAN REN Performed By: Marcus Hammonds Right Sided Venous Evaluation Challenging study due to body weight of 376 pounds to image all veins. Normal vessel filling wall to wall, compression and augmentation as well as Colour flow down to the infrageniculate veins. Left Sided Venous Evaluation Challenging study due to body weight of 376 pounds to image all veins. Normal vessel filling wall to wall, compression and augmentation as well as Colour flow down to the infrageniculate veins. Interpretation Summary No duplex evidence of DVT or obstruction in the bilateral lower extremities. The study is limited due to body habitus. : JUWAN REN > Geoff Brown
[2016-06-12] MEDS: INSULIN LISPRO 100 UNIT/ML 3 ML VIAL SUBCUT PRN ×2 (16:55→21:37)
[2016-06-12] MEDS: TRAMADOL HCL 50 MG TABLET PO PRN (21:39)
[2016-06-12] MEDS: ATORVASTATIN CALCIUM 40 MG TABLET PO SCH (21:39)
[2016-06-12] MEDS ORDERED: INSULIN GLARGINE,HUM.REC.ANLOG 1,000 UNIT/10 ML UNIT SUBCUT SCH (22:00)
[2016-06-13] MEDS: PIPERACILLIN SODIUM/TAZOBACTAM 3.375 GM in NORMAL SALINE 100 ML IV SCH ×2 (01:10→06:08)
[2016-06-13] MEDS: SODIUM HYPOCHLORITE 0.25% SOLN 473 ML BOTTLE TP SCH ×3 (01:13→23:38)
[2016-06-13] MEDS: INSULIN GLARGINE,HUM.REC.ANLOG 1,000 UNIT/10 ML UNIT SUBCUT SCH ×2 (01:41→23:38)
[2016-06-13 05:39] LABS: ANION GAP 9 (5-19); BLOOD UREA NITROGEN 14 mg/dL (7-20); CALCIUM 8.5 mg/dL (8.4-10.2); CARBON DIOXIDE 24 mmol/L (22-30); CHLORIDE 104 mmol/L (98-107); CREATININE RESULT 0.87 mg/dL (0.52-1.25); GLUCOSE 118 mg/dL (75-110); SODIUM 137.3 mmol/L (137-145)
[2016-06-13] MEDS: LANSOPRAZOLE 30 MG TAB.RAP.DR PO SCH (06:08)
[2016-06-13] MEDS: NORMAL SALINE 1000 ML 1,000 ML IV PRN (06:09)
[2016-06-13] MEDS: ENOXAPARIN SODIUM INJ 40 MG/0.4 ML DISP.SYRIN SUBCUT SCH (07:50)
[2016-06-13] MEDS: FUROSEMIDE 40 MG TABLET PO SCH (07:51)
[2016-06-13] MEDS: LEVOTHYROXINE SODIUM 0.025 MG TABLET PO SCH (10:02)
[2016-06-13] MEDS: LACTOBACILLUS ACIDOPHILUS 250 MG TAB PO SCH ×2 (10:02→17:22)
[2016-06-13] MEDS: MUPIROCIN CALCIUM 2% CREAM 15 GM TP SCH ×2 (10:02→17:20)
[2016-06-13] MEDS: LEVOFLOXACIN 500 MG TABLET PO SCH (10:02)
[2016-06-13] MEDS: TRAMADOL HCL 50 MG TABLET PO PRN ×2 (12:09→23:37)
--- NOTE | 2016-06-13 14:10 | PDOC PROGRESS REPORT ---
Subjective Progress Note for:: 06/13/16 Subjective:: Patient denied fever or chills. No chest pain or difficulty with breathing. No nausea or vomiting. Tolerating oral feeding. No abdominal pain or constipation. Remain on IV antibiotic therapy. Continue darken solution cleaning of wound. Surgical input appreciated without surgical intervention at this time. Wound did grew multiple organism and skin una. Blood cultures remain no growth to date. Improve malodor and purulent drainage from leg ulcers. Physical Exam Vital Signs: Temp Pulse Resp BP Pulse Ox 98.5 F 63 20 147/51 H 96 06/13/16 11:19 06/13/16 11:19 06/13/16 11:19 06/13/16 11:19 06/13/16 11:19 Intake & Output 06/12/16 06/13/16 06/14/16 06:59 06:59 06:59 Intake Total 1522 3261 458 Output Total 650 3000 925 Balance 872 261 -467 Weight 178.6 kg Physical Exam: General appearance: PRESENT: no acute distress, cooperative, morbidly obese Head exam: PRESENT: atraumatic, normocephalic Eye exam: PRESENT: conjunctiva pink, EOMI, PERRLA Ear exam: PRESENT: normal external ear exam Mouth exam: PRESENT: moist, tongue midline Throat exam: ABSENT: post pharyngeal erythema, tonsillar erythema, tonsillar exudate, tonsillogmegaly, other Neck exam: PRESENT: full ROM. ABSENT: carotid bruit, JVD, lymphadenopathy, thyromegaly Respiratory exam: ABSENT: accessory muscle use, chest wall tenderness, clear to auscultation remedios, crackles, decreased breath sounds, prolonged expiratory phase , rales, retraction, rhonchi, stridor, symmetrical, tachypnea, unlabored, wheezes, other Cardiovascular exam: PRESENT: RRR. ABSENT: diastolic murmur, rubs, systolic murmur GI/Abdominal exam: PRESENT: normal bowel sounds, soft. ABSENT: distended, guarding, mass, organomegaly, rebound, tenderness Extremities exam: PRESENT: full ROM, joint swelling, pedal edema, tenderness Musculoskeletal exam: PRESENT: bedbound with leg elevation, deformity - due to joint involvement with arthritis Neurological exam: PRESENT: alert, awake, oriented to person, oriented to place , oriented to time, oriented to situation, CN II-XII grossly intact. ABSENT: motor sensory deficit Psychiatric exam: PRESENT: appropriate affect, normal mood. ABSENT: homicidal ideation, suicidal ideation Skin exam: PRESENT: improving erythema, rash, warm, other - improving extensive exophytic collection of possible fungal skin infection on legs and feet to knee level. Results Laboratory Results: 06/12/16 05:41 06/13/16 04:31 06/13/16 04:31 Sodium 137.3 Potassium 4.0 Chloride 104 Carbon Dioxide 24 Anion Gap 9 BUN 14 Creatinine 0.87 Est GFR ( Amer) > 60 Est GFR (Non-Af Amer) > 60 Glucose 118 H Calcium 8.5 06/09/16 05:00 Leg - Not Specified Gram Stain - Final 06/09/16 05:00 Leg - Not Specified Wound Culture - Final Proteus Mirabilis Morganella Morganii Providencia Stuartii Skin Una Assessment & Plan - Diagnosis (1) Infected stasis ulcer of left lower extremity Is this a current diagnosis for this admission?: YesPlan: D/C IV Zosyn coverage. I will start him on oral Levofloxacin 500 mg p.o daily based on sensitivity report on grown organism. I had extensive discussion with patient and spouse at bedside during my evaluation today regarding request for sNF placement for short term rehabilitation. See attending physician orders. (2) Infected stasis ulcer of right lower extremity Is this a current diagnosis for this admission?: YesPlan: See attending physician orders. D/C IV Zosyn coverage. Start on oral Levofloxacin coverage as noted above. (3) Diabetes mellitus type 2 in obese Is this a current diagnosis for this admission?: YesPlan: See attending physician orders. Maintain on Lantus insulin with sliding scale Humalog insulin coverage therapy for diabetes mellitus management. (4) Hypothyroidism (acquired) Is this a current diagnosis for this admission?: YesPlan: See attending physician orders. (5) Morbid (severe) obesity due to excess calories Is this a current diagnosis for this admission?: YesPlan: See attending physician orders. (6) Essential hypertension Is this a current diagnosis for this admission?: YesPlan: See attending physician orders. (7) Cellulitis and abscess of lower extremity Is this a current diagnosis for this admission?: YesPlan: See attending physician orders. D/C IV Zosyn coverage. Start on Levofloxacin 500 mg p.o daily. (8) HLD (hyperlipidemia) Qualifiers: Hyperlipidemia type: pure hypercholesterolemia Qualified Code(s): E78.00 - Pure hypercholesterolemia, unspecified; E78.0 - Pure hypercholesterolemia Is this a current diagnosis for this admission?: YesPlan: See attending physician orders. - Time Time Spent with patient: 25-34 minutes Medications reviewed and adjusted accordingly: Yes Anticipated discharge: SNF Within: within 72 hours - Inpatient Certification Medical Necessity: Need Close Monitoring Due to Risk of Patient Decompensation, Need For IV Fluids, Need For Continuous Telemetry Monitoring, Risk of Complication if Not Cared For in Hospital Post Hospital Care: D/C or Transfer Summary - Plan Summary Plan Summary: See attending physician orders.
[2016-06-13] MEDS: INSULIN LISPRO 100 UNIT/ML 3 ML VIAL SUBCUT PRN ×2 (16:37→23:36)
[2016-06-13] MEDS: ATORVASTATIN CALCIUM 40 MG TABLET PO SCH (23:36)
[2016-06-14] MEDS: LANSOPRAZOLE 30 MG TAB.RAP.DR PO SCH (05:14)
[2016-06-14] MEDS: NORMAL SALINE 1000 ML 1,000 ML IV PRN (05:15)
[2016-06-14 07:04] LABS: ANION GAP 8 (5-19); BLOOD UREA NITROGEN 14 mg/dL (7-20); CALCIUM 8.8 mg/dL (8.4-10.2); CARBON DIOXIDE 28 mmol/L (22-30); CHLORIDE 104 mmol/L (98-107); CREATININE RESULT 0.85 mg/dL (0.52-1.25); GLUCOSE 100 mg/dL (75-110); SODIUM 139.7 mmol/L (137-145)
[2016-06-14] MEDS: ENOXAPARIN SODIUM INJ 40 MG/0.4 ML DISP.SYRIN SUBCUT SCH (08:32)
[2016-06-14] MEDS: INSULIN LISPRO 100 UNIT/ML 3 ML VIAL SUBCUT PRN (08:34)
[2016-06-14] MEDS: FUROSEMIDE 40 MG TABLET PO SCH (08:35)
[2016-06-14] MEDS: TRAMADOL HCL 50 MG TABLET PO PRN (08:53)
[2016-06-14] MEDS: MUPIROCIN CALCIUM 2% CREAM 15 GM TP SCH ×2 (09:03→17:29)
[2016-06-14] MEDS: LACTOBACILLUS ACIDOPHILUS 250 MG TAB PO SCH ×2 (09:03→17:27)
[2016-06-14] MEDS: LEVOFLOXACIN 500 MG TABLET PO SCH (09:03)
[2016-06-14] MEDS: LEVOTHYROXINE SODIUM 0.025 MG TABLET PO SCH (09:03)
--- NOTE | 2016-06-14 14:04 | PDOC TRANSFER SUMMARY ---
General - Admit/Disc Date/PCP Admission Date/Primary Care Provider: 06/08/16 17:00 JUWAN REN Discharge Date: 06/14/16 - Discharge Diagnosis (1) Infected stasis ulcer of left lower extremity Is this a current diagnosis for this admission?: Yes (2) Infected stasis ulcer of right lower extremity Is this a current diagnosis for this admission?: Yes (3) Diabetes mellitus type 2 in obese Is this a current diagnosis for this admission?: Yes (4) Hypothyroidism (acquired) Is this a current diagnosis for this admission?: Yes (5) Morbid (severe) obesity due to excess calories Is this a current diagnosis for this admission?: Yes (6) Essential hypertension Is this a current diagnosis for this admission?: Yes (7) Cellulitis and abscess of lower extremity Is this a current diagnosis for this admission?: Yes (8) HLD (hyperlipidemia) Is this a current diagnosis for this admission?: Yes - Additional Information Resuscitation Status: Full Code Discharge Diet: Cardiac, Diabetic Discharge Activity: Activity As Tolerated, Slowly Increase Activity, Supervised Activity Home Medications: Atorvastatin Calcium [Lipitor 40 mg Tablet] 40 mg PO QHS 06/09/16 Furosemide [Lasix] 40 mg PO QAM 06/09/16 Insulin Glargine,Hum.rec.anlog [Lantus Insulin 100 Unit/1 ml 10 ml] 63 units SQ QHS 06/09/16 Insulin Lispro [Humalog] 0 unit SQ .PERSLIDINGSCALE 06/09/16 Levothyroxine Sodium [Synthroid 0.025 mg Tablet] 0.025 mg PO DAILY 06/09/16 Metoclopramide HCl [Reglan] 5 mg PO QID 06/09/16 Tramadol HCl [Ultram 50 mg Tablet] 50 mg PO BIDP PRN 06/09/16 Levofloxacin [Levaquin 500 mg Tablet] 500 mg PO DAILY #7 tablet 06/14/16 Mupirocin Calcium [Bactroban 2% Cream 15 gm] 1 applic TP BID #0 tube 06/14/16 Sodium Hypochlorite [Dakin's 0.25% Soln 473 ml] 20 applic TP BID@0000,1200 #0 bottle 06/14/16 Tramadol HCl [Ultram 50 mg Tablet] 50 mg PO Q8HP PRN #0 tablet 06/14/16 History of Present Illness Admission Date/PCP: 06/08/16 17:00 [facility] History of Present Illness: IVIS ROSAS is a 80 year old male who presented t the office for scheduled follow up for management of his diabetes mellitus, Hypothyroidism and hypertension. Patient and spouse present at the visit reported worsening bilateral leg swelling and infected ulcers and blistering lesions of his legs. There is reported episodes of productive cough and running nose. He denied any fever and chills. Patient and spouse reported worsening malodor and drainage from leg ulcers, particularly on left leg over the last couple of days. His home accucheck has been unusually higher in recent time with readings in the over 200mg/dL range. His blood pressure average was 135/70's mmHg.Patient reported compliance with his home medication. He is currently wrapping legs and ulcers per dressing twice weekly between home health agency nurse visit and spouse dressing. Hospital Course Hospital Course: Patient was admitted for lower extremities cellulitis with possible wound infection. He has multiple comorbidities that worsen is outcome. He was seen by surgicalist team without any need for surgical intervention. Patient was managed with IV antibiotic and eventually changed to oral Levofloxacin based on organism identification and sensitivity findings. He will continue antibiotic coverage for next 7 days. Patient will need home health agency services including visiting nurse, physical therapy and personal; aide as well as electric hospital bed for management of his chronic lymphedema, venous stasis with ulcers, and other comorbidities. Physical Exam Vital Signs: Temp Pulse Resp BP Pulse Ox 99.0 F 75 18 151/54 H 93 06/14/16 07:33 06/14/16 07:33 06/14/16 07:33 06/14/16 07:33 06/14/16 07:33 Intake & Output 06/13/16 06/14/16 06/15/16 06:59 06:59 06:59 Intake Total 6795 5198 Output Total 0331 2950 Balance 261 -1032 Weight 178.6 kg 179.1 kg General appearance: PRESENT: no acute distress, cooperative, morbidly obese Head exam: PRESENT: atraumatic, normocephalic Eye exam: PRESENT: conjunctiva pink, EOMI, PERRLA Ear exam: PRESENT: normal external ear exam Mouth exam: PRESENT: moist, tongue midline Throat exam: ABSENT: post pharyngeal erythema, tonsillar erythema, tonsillar exudate, tonsillogmegaly, other Neck exam: PRESENT: full ROM. ABSENT: carotid bruit, JVD, lymphadenopathy, thyromegaly Respiratory exam: ABSENT: accessory muscle use, chest wall tenderness, clear to auscultation remedios, crackles, decreased breath sounds, prolonged expiratory phase , rales, retraction, rhonchi, stridor, symmetrical, tachypnea, unlabored, wheezes, other Cardiovascular exam: PRESENT: RRR. ABSENT: diastolic murmur, rubs, systolic murmur GI/Abdominal exam: PRESENT: normal bowel sounds, soft. ABSENT: distended, guarding, mass, organomegaly, rebound, tenderness Extremities exam: PRESENT: full ROM, joint swelling, pedal edema, tenderness Musculoskeletal exam: PRESENT: bedbound with leg elevation, deformity - due to joint involvement with arthritis Neurological exam: PRESENT: alert, awake, oriented to person, oriented to place , oriented to time, oriented to situation, CN II-XII grossly intact. ABSENT: motor sensory deficit Psychiatric exam: PRESENT: appropriate affect, normal mood. ABSENT: homicidal ideation, suicidal ideation Skin exam: PRESENT: improving erythema, rash, warm, other - improving extensive exophytic collection of possible fungal skin infection on legs and feet to knee level. Results Laboratory Results: 06/12/16 05:41 06/14/16 06:07 06/14/16 06:07 Sodium 139.7 Potassium 4.0 Chloride 104 Carbon Dioxide 28 Anion Gap 8 BUN 14 Creatinine 0.85 Est GFR ( Amer) > 60 Est GFR (Non-Af Amer) > 60 Glucose 100 Calcium 8.8 06/08/16 20:07 Blood Blood Culture - Final NO GROWTH IN 5 DAYS 06/08/16 20:00 Blood Blood Culture - Final NO GROWTH IN 5 DAYS Transfer Plan - Disposition Transfer Plan: Transfer to [facility] for short term rehabilitation and wound management. - Time Spent with Patient Time spent with patient: Greater than 30 Minutes - I had extenwive discussion with patient and spouse at bedside during my visit today. He is agrreable with SNF transfer and short term rehabilitation. He will call office for follow up appointment before discharge from the facility. All raised quaestions were adequately answered. Qualifiers PATEINT BEING DISCHARGED WITH ANY OF THE FOLLOWING DIAGNOSIS?: No Plan Discharge Plan: Transfer to [facility] for short term rehabilitation. Time Spent: Greater than 30 Minutes
[2016-06-14 15:31] VITALS: BP 147/52
[2016-06-14] MEDS: SODIUM HYPOCHLORITE 0.25% SOLN 473 ML BOTTLE TP SCH (15:57)
[2016-06-14] MEDS ORDERED: INSULIN GLARGINE,HUM.REC.ANLOG 1,000 UNIT/10 ML UNIT SUBCUT SCH (22:00)
== END 2016-06-14 20:00 | DRG 300 ==
LOC: ER 16:31 → EH 17:00 → 3S 21:53
PROVIDERS: ADMIT Internal Medicine Geriatric Medicine; ATTEND Internal Medicine Geriatric Medicine
DX: I87.2 Venous insufficiency (chronic) (peripheral) (principal); L03.116 Cellulitis of left lower limb; L03.115 Cellulitis of right lower limb; Z68.42 Body mass index [BMI] 45.0-49.9, adult; E03.9 Hypothyroidism, unspecified; I10 Essential (primary) hypertension; E11.9 Type 2 diabetes mellitus without complications; E78.5 Hyperlipidemia, unspecified; E66.01 Morbid (severe) obesity due to excess calories; Z87.891 Personal history of nicotine dependence
CPT/HCPCS: 36415; 80048; 80053; 80061; 80202; 82565; 82962; 83036; 85025; 85610; 85730; 87040; 87070; 87077; 87186; 87205; 87493; 93970; J1650; J1815; J2543; J3370; J3490; J7030; J7060

== ENCOUNTER 2019-05-28 11:52 | Emergency (ER) | payer MEDICARE, MEDICAID ==
--- NOTE | 2019-05-28 13:55 | RADIOLOGY REPORT (SQ) ---
EXAM DESCRIPTION: CTA CHEST COMPLETED DATE/TIME: 05/28/2019 1:29 pm REASON FOR STUDY: sob/elevated d-dimer/wait on creat please COMPARISON: None. TECHNIQUE: CT scan of the chest performed using helical scanning technique with dynamic intravenous contrast injection. Images reviewed with lung, soft tissue and bone windows. Reconstructed coronal and sagittal MPR images reviewed. Additional 3 dimensional post-processing performed to develop Maximal Intensity Projection images (NV P). All images stored on PACS. All CT scanners at this facility use dose modulation, iterative reconstruction, and/or weight based d osing when appropriate to reduce radiation dose to as low as reasonably achievable (ALARA). [facility]: Dose Right [facility]: CareDose [facility]: Dose Right [facility]: Teradose 4D [facility]: WealthTouch CONTRAST TYPE AND DOSE: contrast/concentration: Isovue 350.00 mg/ml; Total Contrast Delivered: 75.0 ml; Total Saline Delivered: 65.0 ml Contrast bolus adequate for pulmonary arteries and aorta. RENAL FUNCTION: BUN 13 creatinine 0.87 RADIATION DOSE: CT Rad equipment meets quality standard of care and radiation dose reduction techniq ues were employed. CTDIvol: 28.1 - 48.7 mGy. DLP: 2030 mGy-cm. . LIMITATIONS: Respiratory motion. FINDINGS: LUNGS AND PLEURA: No masses, infiltrates, or pneumothorax. No pleural effusions or pleura l calcifications. AORTA AND GREAT VESSELS: No aneurysm. No dissection. HEART: Small pericardial effusion. No significant coronary artery calcifications. PULMONARY ARTERIES: No emboli visualized in the main pulmonary arteries or the segmental branches. HILAR AND MEDIASTINAL STRUCTURES: No identified masses or abnormal nodes. HARDWARE: None in the chest. UPPER ABDOMEN: Somewhat lobular margin of the liver. Splenomegaly. THYROID AND OTHER SOFT TISSUES: No masses. No adenopathy. BONES: No acute or significant finding. 3D MIPS: Confirm above findings. OTHER: No other significant finding. IMPRESSION: There is no pulmonary embolus. There is no aortic aneurysm or dissection. Small perica rdial effusion. 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 Splenomegaly. COMMENT: Quality ID # [id number]: Final reports with documentation of one or more dose reduction techniques (e.g., Automated exposure control, adjustment of the mA and/or kV according to patient size, use of iterative reconstruction technique) TECHNICAL DOCUMENTATION: JOB ID: [id number] 2010 [employer]- All Rights Reserved Reading location - IP/workstation name: [email or web address]
[2019-05-28 14:22] LABS: ABSOLUTE EOSINOPHILS # (AUTO) 0.3 10^3/uL (0.0-0.6); ABSOLUTE LYMPHOCYTES (AUTO) 2.2 10^3/uL (0.5-4.7); ABSOLUTE MONOCYTES (AUTO) 0.4 10^3/uL (0.1-1.4); ABSOLUTE NEUT (AUTO) 3.6 10^3/uL (1.7-8.2); BASOPHILS % (AUTO) 0.4 % (0-2); EOSINOPHILS % (AUTO) 4.3 % (0-6); HEMOGLOBIN 14.3 g/dL (13.5-17.0); LYMPHOCYTES % (AUTO) 33.4 % (13-45); MEAN CORPUSCULAR VOLUME 94 fl (80-97); MONOCYTES % (AUTO) 6.7 % (3-13); PLATELET COUNT 125 10^3/uL (150-450); RED BLOOD COUNT 4.47 10^6/uL (4.35-5.55); RED CELL DISTRIBUTION WIDTH 13.7 % (11.5-14.0); SEGMENTED NEUTROPHILS % (AUTO) 55.2 % (42-78); TOTAL CELLS COUNTED % (AUTO) 100 %; WHITE BLOOD COUNT 6.5 10^3/uL (4.0-10.5)
[2019-05-28 14:31] LABS: ALBUMIN 3.3 g/dL (3.5-5.0); ALKALINE PHOSPHATASE 129 U/L (38-126); ASPARTATE AMINO TRANSFERASE 35 U/L (17-59); BILIRUBIN,DIRECT 0.1 mg/dL (0.0-0.4); BILIRUBIN,TOTAL 0.8 mg/dL (0.2-1.3); BLOOD UREA NITROGEN 14 mg/dL (7-20); CALCIUM 8.2 mg/dL (8.4-10.2); CARBON DIOXIDE 33 mmol/L (22-30); GLUCOSE 145 mg/dL (75-110); POTASSIUM 3.8 mmol/L (3.6-5.0); TOTAL PROTEIN 6.3 g/dL (6.3-8.2)
[2019-05-28 14:46] LABS: CHLORIDE 99 mmol/L (98-107)
[2019-05-28 14:50] LABS: ANION GAP 5 (5-19)
--- NOTE | 2019-05-28 15:01 | ER Document Report ---
ED General - General Chief Complaint: Abnormal Lab Results Stated Complaint: ABNORMAL LABS Time Seen by Provider: 05/28/19 12:24 Primary Care Provider: JUWAN REN MD [Primary Care Provider] - Follow up as needed Mode of Arrival: Medic Information source: Patient TRAVEL OUTSIDE OF THE [place] IN LAST 30 DAYS: No - HPI Notes: Patient was brought to the emergency department by paramedics due to an elevated d-dimer. Patient was apparently complained of some shortness of breath at the [facility]. Patient states that shortness of breath is now better and that he no longer has it. He denies any pain. The shortness of breath appears to have been brief and intermittent. Nothing known made it better or worse. It was m ild in intensity. It is currently absent. - Related Data Allergies/Adverse Reactions: No Known Drug Allergies Allergy (Unknown, Verified 06/09/16 02:42) Past Medical History - General Information source: Patient - Social History Smoking Status: Former Smoker Frequency of alcohol use: None Drug Abuse: None Family History: DM - mother, Hypertension - father Patient has suicidal ideation: No Patient has homicidal ideation: No - Past Medical History Cardiac Medical History: Reports: Hx Hypercholesterolemia, Hx Hypertension, Hx Peripheral Vascular Disease - lower extremities venous stasis changes Endocrine Medical History: Reports: Hx Diabetes Mellitus Type 2, Hx Hypothyroidism Musculoskeletal Medical History: Reports Hx Arthritis - Immunizations Hx Pneumococcal Vaccination: 01/14/17 Review of Systems - Review of Systems Constitutional: denies: Chills, Fever Cardiovascular: denies: Chest pain, Palpitations Respiratory: Short of breath. denies: Cough -: Yes All other systems reviewed and negative Physical Exam - Vital signs Interpretation: Normal - General General appearance: Appears well, Alert - HEENT Head: Normocephalic, Atraumatic Eyes: Normal Pupils: PERRL - Respiratory Respiratory status: No respiratory distress Chest status: Nontender Breath sounds: Normal Chest palpation: Normal - Cardiovascular Rhythm: Regular Heart sounds: Normal auscultation Murmur: No - Abdominal Inspection: Normal Distension: No distension Bowel sounds: Normal Tenderness: Nontender Organomegaly: No organomegaly - Back Back: Normal, Nontender - Extremities General upper extremity: Normal inspection, Nontender, Normal color, Normal ROM, Normal temperature General lower extremity: Normal ROM, Other - Bilateral lower extremities have changes consistent with chronic venous stasis and lymphedema. However there is not appear to be any acute cellulitis. They are not tender to palpation.. No: Christina's sign - Neurological Speech: Normal Motor strength normal: LUE, RUE, LLE, RLE Sensory: Normal - Psychological Associated symptoms: Normal affect, Normal mood - Skin Skin Temperature: Warm Skin Moisture: Dry Skin Color: Normal Course - Re-evaluation Re-evalutation: 05/28/19 15:00 Patient is sent over for an elevated d-dimer. Patient has no complaints here. Exam is unremarkable. Vital signs are also unremarkable. CTA shows no evidence of pulmonary embolism. - Laboratory Result Diagrams: 05/28/19 11:59 05/28/19 11:59 Laboratory results interpreted by me: 05/28/19 05/28/19 05/28/19 11:59 11:59 11:59 Plt Count 125 L D-Dimer 4.79 H Carbon Dioxide 33 H Glucose 145 H Calcium 8.2 L Alkaline Phosphatase 129 H Albumin 3.3 L - Diagnostic Test Radiology reviewed: Image reviewed, Reports reviewed Discharge - Discharge Clinical Impression: Elevated d-dimer Dyspnea Qualifiers: Dyspnea type: other forms of dyspnea Qualified Code(s): R06.09 - Other forms of dyspnea Condition: Stable Disposition: HOME, SELF-CARE Additional Instructions: Please continue to do daily wound care for your lower extremities. Referrals: JUWAN REN MD [Primary Care Provider] - Follow up in 3-5 days
[2019-05-28 16:15] VITALS: BP 160/72
== END 2019-05-28 19:30 | disposition home or self-care (01) ==
LOC: ER 11:52
DX: R06.02 Shortness of breath (principal); R06.09 Other forms of dyspnea; R79.89 Other specified abnormal findings of blood chemistry; E78.00 Pure hypercholesterolemia, unspecified; I10 Essential (primary) hypertension; E11.9 Type 2 diabetes mellitus without complications
CPT/HCPCS: 36415; 71275; 80053; 85025; 85379; 99284